=== PATIENT | female | born 1995 | race African-American/Black ===

== ENCOUNTER 2018-01-07 18:21 | Emergency (ER) | payer BC, OTHER ==
[2018-01-07] MEDS ORDERED: DIPHENHYDRAMINE HCL 25 MG CAPSULE PO ONE (18:50)
[2018-01-07] MEDS ORDERED: FAMOTIDINE 20 MG TABLET PO ONE (18:50)
--- NOTE | 2018-01-07 18:59 | ER Document Report ---
ED General - General Chief Complaint: Anxiety Stated Complaint: SHORTNESS OF BREATH Time Seen by Provider: 01/07/18 18:38 Mode of Arrival: Ambulatory Information source: Patient Notes: 22-year-old female presented ED for complaint of anxiety. She states that she had a similar symptoms last week but did not come to the emergency room. She states she has had anxiety as the younger age. She states last week she was eating some sulfur and trips and also became short of breath and felt like her throat was closing. She states that she stopped eating the sausage chips as she had several family. Over her and then she relaxed and made herself calm down and she was okay she stated that today at work she was eating some chili the same thing happened her throat feel like she was close enough and she became short of breath. I asked her did she have a psychologists and she stated no I asked her did she have a mental health care provider when she stated that God was her only mental health provider and that her family usually prays over her when she has these episodes. We discussed the use of some Benadryl and Pepcid for the symptoms that she is having now and she said yes she would like that at this time. She states she wanted to know what was going on with her. Her assessment is completely negative for anything at this time she is not short of breath her vital signs are stable. She has not having any signs or symptoms of shortness of breath or swelling to her throat at this time. She states she does feel a little bit anxious because of what happened earlier. TRAVEL OUTSIDE OF THE [place] IN LAST 30 DAYS: No - HPI Onset: Last week Onset/Duration: Intermittent Quality of pain: No pain Severity: None Pain Level: Denies Associated symptoms: Other - Possible allergy to food she ate or anxiety attack Exacerbated by: Other - He becomes more anxious after having the shortness of breath and feeling like her throat is swelling Relieved by: Denies Similar symptoms previously: Yes - Last week Recently seen / treated by doctor: No - Related Data Allergies/Adverse Reactions: No Known Allergies Allergy (Unverified 01/07/18 18:23) Past Medical History - General Information source: Patient - Social History Smoking Status: Never Smoker Cigarette use (# per day): No Chew tobacco use (# tins/day): No Smoking Education Provided: No Frequency of alcohol use: None Drug Abuse: None Occupation: Call center Lives with: Spouse/Significant other Family History: Reviewed & Not Pertinent Patient has suicidal ideation: No Patient has homicidal ideation: No - Past Medical History Cardiac Medical History: Reports: None Pulmonary Medical History: Reports: None EENT Medical History: Reports: None Neurological Medical History: Reports: None Endocrine Medical History: Reports: None Renal/ Medical History: Reports: None Malignancy Medical History: Reports: None Musculoskeltal Medical History: Reports None Skin Medical History: Reports None Psychiatric Medical History: Reports: Other - never diagnosed with anxiety but she did have some anxiety when younger Traumatic Medical History: Reports: None Infectious Medical History: Reports: None Surgical Hx: Negative Past Surgical History: Reports: None Review of Systems - Review of Systems Constitutional: No symptoms reported EENT: Other - States felt like her throat was swelling and she was having trouble swallowing earlier Cardiovascular: No symptoms reported Respiratory: No symptoms reported Gastrointestinal: No symptoms reported Genitourinary: No symptoms reported Female Genitourinary: No symptoms reported Musculoskeletal: No symptoms reported Skin: No symptoms reported Hematologic/Lymphatic: No symptoms reported Neurological/Psychological: Anxiety -: Yes All other systems reviewed and negative Physical Exam - Vital signs Vitals: Temp Pulse Resp BP Pulse Ox 98.0 F 87 18 129/82 H 100 01/07/18 18:33 01/07/18 18:33 01/07/18 18:33 01/07/18 18:33 01/07/18 18:33 Interpretation: Normal - General General appearance: Appears well, Alert - HEENT Head: Normocephalic, Atraumatic Eyes: Normal Pupils: PERRL Ears: Normal External canal: Normal Tympanic membrane: Normal Sinus: Normal Nasal: Normal Mouth/Lips: Normal Pharynx: Normal Neck: Normal - Respiratory Respiratory status: No respiratory distress Chest status: Nontender Breath sounds: Normal Chest palpation: Normal - Cardiovascular Rhythm: Regular Heart sounds: Normal auscultation Murmur: No - Abdominal Inspection: Normal Distension: No distension Bowel sounds: Normal Tenderness: Nontender Organomegaly: No organomegaly - Back Back: Normal, Nontender - Extremities General upper extremity: Normal inspection, Nontender, Normal color, Normal ROM , Normal temperature General lower extremity: Normal inspection, Nontender, Normal color, Normal ROM , Normal temperature, Normal weight bearing. No: Janak's sign - Neurological Neuro grossly intact: Yes Cognition: Normal Orientation: AAOx4 Robert Coma Scale Eye Opening: Spontaneous Robert Coma Scale Verbal: Oriented [place] Coma Scale Motor: Obeys Commands [place] Coma Scale Total: 15 Speech: Normal Motor strength normal: LUE, RUE, LLE, RLE Sensory: Normal - Psychological Associated symptoms: Normal affect, Normal mood - Skin Skin Temperature: Warm Skin Moisture: Dry Skin Color: Normal Course - Re-evaluation Re-evalutation: 01/07/18 19:03 Patient was given a list of the mental health facilities in the area that she could consult. She was also given a dose of Pepcid and Benadryl. Her assessment is negative at this time I do not see any swelling I do not see any enlargement of the tongue I do not see any signs or symptoms of swelling to the throat she is able to drink and eat with no difficulty at this time she is not short of breath her lungs are clear heart rate is within normal limits. I recommended patient follow-up with her primary doctor and get a referral to an psychologists and to a mental health worker. I recommended to the patient that if she has another episode like this that she comes right to the emergency room so someone can evaluate what is going on at the time of the episode. Patient and significant other verbalized agreement with this plan. - Vital Signs Vital signs: Temp Pulse Resp BP Pulse Ox 98.0 F 87 18 129/82 H 100 01/07/18 18:33 01/07/18 18:33 01/07/18 18:33 01/07/18 18:33 01/07/18 18:33 Discharge - Discharge Clinical Impression: possible allergic reaction, Anxiety Condition: Stable Disposition: HOME, SELF-CARE Instructions: Family Physicians / Practices Additional Instructions: Anxiety The physician feels that some of your health problems are being caused by anxiety. Anxiety affects your health in many ways. Anxiety alone can cause palpitations, sweats, chest pains, abdominal pains, shortness of breath, and headaches. It contributes to ulcer disease, high blood pressure, irritable bowel syndrome, and has been shown to cause flare-ups of many other diseases. Anxiety is not a simple disorder to treat. If the anxiety is due to recent life stresses, you may simply need time to "work through" the changes. If the anxiety is due to an underlying unhappiness with yourself or due to psychiatric disturbance, professional help will be needed. Your physician can refer you for further help if needed. Anti-anxiety medication is occasionally given if the stress is acute or if you are having trouble sleeping. Chronic or frequent use of these medications is not a good idea because the body becomes reliant on it, preventing you from dealing with life's normal stresses. ACUTE ALLERGIC REACTION: Your symptoms are due to an allergic reaction. Allergy can cause hives, swelling of the hands, feet, and face, hoarseness, and difficulty swallowing or breathing. It may be due to exposure to medication, animal dander, foods, infection, or insect bites. Medication is a common cause, even when prior use of this same medication caused no problems. Acute treatment may include adrenalin and antihistamines. Usually, the specific allergic agent can't be identified unless repeated episodes occur. Home treatment includes the following: (1) Stop any suspicious medications. This will be discussed with you. (2) Oral antihistamines for the next four to five days. Example, diphenhydramine (Benadryl) every four hours. (3) You may also use cimetidine (Tagamet), ranitidine (Zantac), or famotidine ( Pepcid) every four hours if diphenhydramine is not controlling itching and hives. (4) Avoid aspirin until the hives completely disappear. (5) Avoid hot baths or showers until the hives are completely gone. Call the doctor if faintness, difficulty swallowing, tightness in the chest , or wheezing occurs. ACID-SUPPRESSING MEDICATION: You have a prescription for medicine which reduces the stomach's secretion of acid. Examples include Zantac, Tagament, and Pepcid. These drugs are often used to allow healing of ulcers or esophagitis. They may be needed to prevent recurrence of ulcers in some patients, or to prevent damage from acid reflux in the esophagus. Take all medication as prescribed, even after the pain is gone. Regular antacids may be added as needed if you have symptoms while taking this medicine. These medications sometimes are prescribed for allergic reactions because they have anti-histaminic effects and relieve the rash and itching of the reaction. There are usually no side effects from this medication. But, in rare cases and particularly in the elderly, serious problems can occur. Contact your doctor if there is fever, rash, hallucinations, confusion, or unusual bruising. Contact your doctor at once if you develop lightheadedness, black or bloody stool, or bloody vomitus. USE OF DIPHENHYDRAMINE: The use of diphenhydramine (Benadryl) has been recommended to control allergic symptoms. The 25 mg strength is available over- the-counter, as well as the elixir. This antihistamine is used for many symptoms. It's useful for itching, watering eyes and nose, allergic swelling, hives, and insect stings. The medication can be repeated four times daily. Age Elixir (12.5 mg/tsp) 25 mg pill 2-3 yr 1/2 tsp 4-8 yr 1 tsp 9-14 yr 2 tsp one tab adult 1-2 tabs Antihistamines may cause drowsiness, especially with the first dose. Do not operate machinery or drive while under the effects of the medication. Do not combine the medication with alcohol, or with any other medication without talking to your doctor. FOLLOW-UP CARE: If you have been referred to a physician for follow-up care, call the physician s office for an appointment as you were instructed or within the next two days. If you experience worsening or a significant change in your symptoms, notify the physician immediately or return to the Emergency Department at any time for re-evaluation. Forms: Elevated Blood Pressure, Return to Work
[2018-01-07 19:10] VITALS: BP 129/69
== END 2018-01-07 19:13 | disposition home or self-care (01) ==
LOC: ER 18:21
DX: F41.9 Anxiety disorder, unspecified (principal); R06.02 Shortness of breath
CPT/HCPCS: 99283

== ENCOUNTER 2018-05-13 23:36 | Emergency (ER) | payer OTHER ==
[2018-05-13 23:58] VITALS: BP 119/78
[2018-05-14] MEDS ORDERED: NAPROXEN 250 MG TABLET PO ONE (01:30)
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
== END 2018-05-14 02:13 | disposition home or self-care (01) ==
LOC: ER 23:36
DX: M25.562 Pain in left knee (principal); V43.62XA Car passenger injured in collision with other type car in traffic accident, initial encounter; Y92.410 Unspecified street and highway as the place of occurrence of the external cause
CPT/HCPCS: 99283

== ENCOUNTER 2018-08-27 20:43 | Emergency (ER) | payer OTHER ==
--- NOTE | 2018-08-27 22:37 | ER Document Report ---
HPI - HPI Patient complains to provider of: Sore throat Pain Level: 2 Context: Patient is a 22-year-old female presenting to the emergency department complaining of a "lump on the left side of her neck." Patient states she is also had a sore throat for the last 3 days. Patient also states she has had a runny nose and cough. Patient denies fever, abdominal pain, nausea, vomiting, diarrhea, dysuria. Past medical history: None Medications: None Allergies: None - EENT EENT: REPORTS: Sore Throat - "lump" on neck Past Medical History - General Information source: Patient - Social History Smoking Status: Unknown if Ever Smoked Lives with: Family Family History: Reviewed & Not Pertinent Patient has suicidal ideation: No Patient has homicidal ideation: No Renal/ Medical History: Denies: Hx Peritoneal Dialysis - Immunizations Immunizations up to date: Yes Hx Diphtheria, Pertussis, Tetanus Vaccination: Yes Vertical Provider Document - CONSTITUTIONAL Agree With Documented VS: Yes Notes: GENERAL: Alert, interacts well. No acute distress. HEAD: Normocephalic, atraumatic. No frontal or maxillary sinus tenderness EYES: Pupils equal, round, and reactive to light. Extraocular movements intact. ENT: Oral mucosa moist, tongue midline. Pharynx mannerly erythematous, no palatal petechiae, no exudate noted tonsils +2 bilaterally. Bilateral TMs and canal WNL. NECK: Full range of motion. Supple. Trachea midline. Bilateral cervical lymphadenopathy appreciated LUNGS: Clear to auscultation bilaterally, no wheezes, rales, or rhonchi. No respiratory distress. HEART: Regular rate and rhythm. No murmur ABDOMEN: Soft, non-tender. Non-distended. Bowel sounds present in all 4 quadrants. EXTREMITIES: Moves all 4 extremities spontaneously. No edema, normal radial and dorsalis pedis pulses bilaterally. No cyanosis. BACK: no cervical, thoracic, lumbar midline tenderness. No saddle anesthesia, normal distal neurovascular exam. NEUROLOGICAL: Alert and oriented x3. Normal speech. cranial nerves II through XII grossly intact PSYCH: Normal affect, normal mood. SKIN: Warm, dry, normal turgor. No rashes or lesions noted. - INFECTION CONTROL TRAVEL OUTSIDE OF THE [place] IN LAST 30 DAYS: No Course - Re-evaluation Re-evalutation: 08/27/18 22:44 Rapid strep was negative. Discussed diagnosis of lymphadenopathy with the patient. Discussed need to follow-up with primary care. Patient states her cough is "very intermittent" she does not want any cough medications. Patient states she will take [id number] medications. Close return precautions discussed - Vital Signs Vital signs: Temp Pulse Resp BP Pulse Ox 98.5 F 72 18 128/78 H 100 08/27/18 20:56 08/27/18 20:56 08/27/18 20:56 08/27/18 20:56 08/27/18 20:56 Discharge - Discharge Clinical Impression: Lymphadenopathy Pharyngitis Qualifiers: Pharyngitis/tonsillitis etiology: unspecified etiology Qualified Code(s): J02.9 - Acute pharyngitis, unspecified Condition: Stable Disposition: HOME, SELF-CARE Instructions: Viral Syndrome ([facility]), Lymphadenopathy ([facility]) Additional Instructions: As we discussed you have been seen and treated in the emergency room for something called lymphadenopathy. This means your lymph nodes are swollen. Lymph nodes are what help us fight infections. Because you have a sore throat, congestion and cough this is the likely reason why your lymph nodes are swollen. Your rapid strep came back negative for bacteria. This means you have something called viral pharyngitis. Viral pharyngitis can be treated with Tylenol and Motrin at home. Also warm salt water gargles and honey. Please return to the emergency room for any other worsening symptoms
[2018-08-27] MEDS ORDERED: ACETAMINOPHEN 325 MG TABLET PO ONE (22:38)
[2018-08-27 22:55] VITALS: BP 118/73
== END 2018-08-27 22:55 | disposition home or self-care (01) ==
LOC: ER 20:43
DX: J02.9 Acute pharyngitis, unspecified (principal); R59.0 Localized enlarged lymph nodes; R09.89 Other specified symptoms and signs involving the circulatory and respiratory systems; R05 Cough
CPT/HCPCS: 87070; 87880; 99283

== ENCOUNTER 2019-04-07 18:05 | Emergency (ER) | payer OTHER ==
[2019-04-07 18:11] VITALS: BP 133/75
[2019-04-07] MEDS ORDERED: IBUPROFEN 800 MG TABLET PO ONE (18:55)
[2019-04-07] MEDS ORDERED: DIPHENHYDRAMINE HCL 50 MG CAPSULE PO ONE (18:55)
[2019-04-07] MEDS ORDERED: MECLIZINE HCL 12.5 MG TABLET PO ONE (18:55)
--- NOTE | 2019-04-07 18:55 | ER Document Report ---
ED Medical Screen (RME) - General Chief Complaint: Headache Stated Complaint: HEADACHE Time Seen by Provider: 04/07/19 18:23 Mode of Arrival: Ambulatory Information source: Patient Notes: Patient is a 23-year-old female without a history of headache or migraine who presents to the ER today for pressure in the back of her head that she states is not really painful just "like a pressure" that she noticed come on while she was sitting at work today. Patient has no history of Chiari malformation, etc., she denies any other headache symptoms such as nausea, vomiting, blurred vision, numbness or tingling anywhere, weakness anywhere, injury to the head. TRAVEL OUTSIDE OF THE [place] IN LAST 30 DAYS: No - Related Data Allergies/Adverse Reactions: No Known Allergies Allergy (Unverified 01/07/18 18:23) Past Medical History - General Information source: Patient - Social History Chew tobacco use (# tins/day): No Frequency of alcohol use: None Drug Abuse: None Renal/ Medical History: Denies: Hx Peritoneal Dialysis - Immunizations Immunizations up to date: Yes Hx Diphtheria, Pertussis, Tetanus Vaccination: Yes Review of Systems - Review of Systems Constitutional: No symptoms reported EENT: No symptoms reported Cardiovascular: No symptoms reported Respiratory: No symptoms reported Gastrointestinal: No symptoms reported Genitourinary: No symptoms reported Female Genitourinary: No symptoms reported Musculoskeletal: No symptoms reported Skin: No symptoms reported Hematologic/Lymphatic: No symptoms reported Neurological/Psychological: See HPI Physical Exam - Vital signs Vitals: Temp Pulse Resp BP Pulse Ox 98.1 F 77 12 133/75 H 100 04/07/19 18:10 04/07/19 18:10 04/07/19 18:10 04/07/19 18:10 04/07/19 18:10 - Notes Notes: PHYSICAL EXAMINATION: GENERAL: Well-appearing and in no acute distress. HEAD: Atraumatic, normocephalic. EYES: Pupils equal round and reactive to light, extraocular movements intact, sclera anicteric, conjunctiva are normal. ENT: ear canals without erythema or foreign body, TMs pearly holley with good bony landmarks, nares patent, oropharynx clear without exudates. Moist mucous membranes. NECK: Normal range of motion, supple without lymphadenopathy LUNGS: CTAB and equal. No wheezes rales or rhonchi. HEART: Regular rate and rhythm without murmurs ABDOMEN: Soft, no tenderness. No guarding, no rebound BACK: no vertebral tenderness, normal ROM GI/: no CVA tenderness EXTREMITIES: Normal range of motion, no pitting edema. No cyanosis. NEUROLOGICAL: Cranial nerves grossly intact. Normal sensory/motor exams. PSYCH: Normal mood, normal affect. SKIN: Warm, Dry, normal turgor, no rashes or lesions noted Course - Vital Signs Vital signs: Temp Pulse Resp BP Pulse Ox 98.1 F 77 12 133/75 H 100 04/07/19 18:10 04/07/19 18:10 04/07/19 18:10 04/07/19 18:10 04/07/19 18:10 Doctor's Discharge - Discharge Clinical Impression: Headache Qualifiers: Headache type: unspecified Headache chronicity pattern: acute headache Intractability: not intractable Qualified Code(s): R51 - Headache Condition: Stable Disposition: HOME, SELF-CARE Additional Instructions: Return immediately for any new or worsening symptoms. Follow up with primary care provider, call tomorrow to make followup appointment. Prescriptions: Ibuprofen [Motrin 800 mg Tablet] 800 mg PO Q8H PRN #30 tab PRN Reason: Prochlorperazine Maleate [Compazine 10 mg Tablet] 10 mg PO Q8H PRN #10 tablet PRN Reason:
--- NOTE | 2019-04-07 19:25 | RADIOLOGY REPORT (SQ) ---
EXAM DESCRIPTION: CT HEAD WITHOUT COMPLETED DATE/TIME: 04/07/2019 7:01 pm REASON FOR STUDY: pressure back of head COMPARISON: None. TECHNIQUE: Axial images acquired through the brain without intravenous contrast. Images reviewed wi th bone, brain and subdural windows. Images stored on PACS. All CT scanners at this facility use dose modulation, iterative reconstruction, and/or weight based d osing when appropriate to reduce radiation dose to as low as reasonably achievable (ALARA). [facility]: Dose Right [facility]: CareDose [facility]: Dose Right [facility]: Teradose 4D [facility]: Smart Disqus RADIATION DOSE: CT Rad equipment meets quality standard of care and radiation dose reduction techniq ues were employed. CTDIvol: 53.2 mGy. DLP: 1044 mGy-cm. mGy. LIMITATIONS: None. FINDINGS: VENTRICLES: Normal size and contour. CEREBRUM: No masses. No hemorrhage. No midline shift. No evidence for acute infarction. Normal gra y/white matter differentiation. No areas of low density in the white matter. CEREBELLUM: No masses. No hemorrhage. No alteration of density. No evidence for acute infarction. EXTRAAXIAL SPACES: No fluid collections. No masses. ORBITS AND GLOBE: No intra- or extraconal masses. Normal contour of globe without masses. CALVARIUM: No fracture. PARANASAL SINUSES: No fluid or mucosal thickening. SOFT TISSUES: No mass or hematoma. OTHER: No other significant finding. IMPRESSION: NORMAL BRAIN CT WITHOUT CONTRAST. EVIDENCE OF ACUTE STROKE: NO. COMMENT: Quality ID # [id number]: Final reports with documentation of one or more dose reduction techniques (e.g., Automated exposure control, adjustment of the mA and/or kV according to patient size, use of iterative reconstruction technique) TECHNICAL DOCUMENTATION: JOB ID: [id number] [employer]- All Rights Reserved Reading location - IP/workstation name: [email or web address]
== END 2019-04-07 19:35 | disposition home or self-care (01) ==
LOC: ER 18:05
DX: R51 Headache (principal)
CPT/HCPCS: 70450; 99284

== ENCOUNTER 2019-08-28 10:42 | Emergency (ER) | payer OTHER ==
--- NOTE | 2019-08-28 11:52 | ER Document Report ---
ED Medical Screen (RME) - General Chief Complaint: Dizziness Stated Complaint: DIZZINESS Time Seen by Provider: 08/28/19 11:48 Primary Care Provider: FLORENTINO DAVID CNM [Primary Care Provider] - Follow up as needed Mode of Arrival: Ambulatory Information source: Patient Notes: 23-year-old female presented to ED for complaint of dizziness. She states she had dizziness for about 4 hours Jairo went away and then started again today about 1030. She states she was at work so she left and came to the emergency room. She is 20 weeks and this is her first . States she has an appointment with the doctor on for her . She states she has never been told she had a problem with her sugars. She denies history of dizzy spells or any medical history. She denies smoking drinking or use of drugs. I have greeted and performed a rapid initial assessment of this patient. A comprehensive ED assessment and evaluation of the patient, analysis of test results and completion of medical decision making process will be conducted by an additional ED providers. TRAVEL OUTSIDE OF THE [place] IN LAST 30 DAYS: No - Related Data Allergies/Adverse Reactions: No Known Allergies Allergy (Verified 08/28/19 11:47) Past Medical History Renal/ Medical History: Denies: Hx Peritoneal Dialysis - Immunizations Immunizations up to date: Yes Hx Diphtheria, Pertussis, Tetanus Vaccination: Yes Physical Exam - Vital signs Vitals: Temp Pulse Resp BP Pulse Ox 98.2 F 90 16 127/73 H 100 08/28/19 11:01 08/28/19 11:01 08/28/19 11:01 08/28/19 11:01 08/28/19 11:01 Course - Vital Signs Vital signs: Temp Pulse Resp BP Pulse Ox 98.2 F 90 16 127/73 H 100 08/28/19 11:01 08/28/19 11:01 08/28/19 11:01 08/28/19 11:01 08/28/19 11:01 Doctor's Discharge - Discharge Referrals: FLORENTINO DAVID CNM [Primary Care Provider] - Follow up as needed
[2019-08-28 12:19] LABS: ABSOLUTE EOSINOPHILS # (AUTO) 0.1 10^3/uL (0.0-0.6); ABSOLUTE LYMPHOCYTES (AUTO) 2.4 10^3/uL (0.5-4.7); ABSOLUTE MONOCYTES (AUTO) 0.7 10^3/uL (0.1-1.4); ABSOLUTE NEUT (AUTO) 5.8 10^3/uL (1.7-8.2); BASOPHILS % (AUTO) 0.4 % (0-2); EOSINOPHILS % (AUTO) 0.8 % (0-6); HEMATOCRIT 37.5 % (36.0-47.0); HEMOGLOBIN 12.7 g/dL (12.0-15.5); LYMPHOCYTES % (AUTO) 26.6 % (13-45); MEAN CORPUSCULAR HEMOGLOBIN 29.8 pg (27.0-33.4); MEAN CORPUSCULAR HGB CONC 33.9 g/dL (32.0-36.0); MEAN CORPUSCULAR VOLUME 88 fl (80-97); MONOCYTES % (AUTO) 7.6 % (3-13); PLATELET COUNT 300 10^3/uL (150-450); RED BLOOD COUNT 4.27 10^6/uL (3.72-5.28); RED CELL DISTRIBUTION WIDTH 13.4 % (11.5-14.0); SEGMENTED NEUTROPHILS % (AUTO) 64.6 % (42-78); TOTAL CELLS COUNTED % (AUTO) 100 %
[2019-08-28 12:22] LABS: APPEARANCE,URINE CLEAR; BILIRUBIN,URINE NEGATIVE (NEGATIVE); COLOR,URINE STRAW; GLUCOSE, URINE NEGATIVE (NEGATIVE); KETONES,URINE NEGATIVE (NEGATIVE); PROTEIN,URINE NEGATIVE (NEGATIVE); URINE SPECIFIC GRAVITY 1.003; UROBILINOGEN,URINE NEGATIVE mg/dL (<2.0)
[2019-08-28 12:38] LABS: ALBUMIN 3.9 g/dL (3.5-5.0); ALKALINE PHOSPHATASE 50 U/L (38-126); ANION GAP 8 (5-19); ASPARTATE AMINO TRANSFERASE 15 U/L (14-36); BILIRUBIN,DIRECT 0.1 mg/dL (0.0-0.4); BILIRUBIN,TOTAL 0.1 mg/dL (0.2-1.3); BLOOD UREA NITROGEN 3 mg/dL (7-20); CALCIUM 9.4 mg/dL (8.4-10.2); CARBON DIOXIDE 25 mmol/L (22-30); CHLORIDE 106 mmol/L (98-107); POTASSIUM 4.2 mmol/L (3.6-5.0)
[2019-08-28 12:58] LABS: GLUCOSE 62 mg/dL (75-110)
--- NOTE | 2019-08-28 13:21 | ER Document Report ---
ED General - General Chief Complaint: Dizziness Stated Complaint: DIZZINESS Time Seen by Provider: 08/28/19 11:48 Primary Care Provider: FLORENTINO DAVID CNM [NO LOCAL MD] - Follow up as needed Mode of Arrival: Ambulatory Notes: HPI: 23-year-old female that presents today stating around 3 to 4 days of some intermittent dizziness. When I asked her what that means, she states she has a sensation of "spinning feeling". She states it is intermittent. No aggravating relieving factors. No headache, blurry vision, nausea, vomiting, fevers, or vaginal bleeding. She is 20 weeks . No pelvic pain or dysuria. She currently denies any symptomatology. No recent upper respiratory tract i nfections or ear fullness or pain. No previous history of similar symptomatology. ROS: See HPI All other review of systems reviewed and otherwise negative Reviewed vital signs and nursing note as charted by RN. PHYSICAL EXAM: CONSTITUTIONAL: Alert and oriented and responds appropriately to questions. Well-appearing; well-nourished HEAD: Normocephalic; atraumatic EYES: PERRL; Conjunctivae clear, sclerae non-icteric ENT: Normal nose; no rhinorrhea; moist mucous membranes; pharynx without lesions noted NECK: Supple without meningismus; non-tender; no cervical lymphadenopathy, no masses CARD: Regular rate and rhythm; no murmurs; symmetric distal pulses RESP: Normal chest excursion without splinting or tachypnea; breath sounds clear and equal bilaterally ABD/GI: Normal bowel sounds; non-distended; soft, non-tender BACK: The back appears normal and is non-tender to palpation EXT: Normal ROM in all joints; non-tender to palpation; no edema SKIN: No acute lesions noted NEURO: CN 2-12 intact; 5/5 bilateral upper and lower extremity strength with sensation intact to light touch; normal [id number] bilaterally; no nystagmus PSYCH: The patient's mood and manner are appropriate. Grooming and personal hygiene are appropriate. TRAVEL OUTSIDE OF THE [place] IN LAST 30 DAYS: No - Related Data Allergies/Adverse Reactions: No Known Allergies Allergy (Verified 08/28/19 11:47) Home Medications: . Vit D Past Medical History - General Information source: Patient - Social History Smoking Status: Never Smoker Chew tobacco use (# tins/day): No Frequency of alcohol use: None Drug Abuse: None Family History: Reviewed & Not Pertinent Patient has suicidal ideation: No Patient has homicidal ideation: No Renal/ Medical History: Denies: Hx Peritoneal Dialysis - Immunizations Immunizations up to date: Yes Hx Diphtheria, Pertussis, Tetanus Vaccination: Yes Physical Exam - Vital signs Vitals: Temp Pulse Resp BP Pulse Ox 98.2 F 90 16 127/73 H 100 08/28/19 11:01 08/28/19 11:01 08/28/19 11:08/28/19 11:08/28/19 11:01 Course - Re-evaluation Re-evalutation: 08/28/19 13:20 Given the history and physical examination, I do have a very low pretest probability for an acute intracranial lesion. Patient has been afebrile denies any upper respiratory tract infection symptoms. No focal neurological deficits or nystagmus at this time. Patient is sitting up smiling in no acute distress. I do not believe any maneuvers or manipulations need to take place at this time. I would like to check the patient's hemoglobin level and test to evaluate for any obvious anemia or . If this is unremarkable, I will discharge the patient home a short course of meclizine with strict return precautions. 08/28/19 13:51 Labs as recorded. Vital signs are stable. Patient is 20 weeks . Meclizine is safe during so I will provide a short course. Strict return precautions have been explained. - Vital Signs Vital signs: Temp Pulse Resp BP Pulse Ox 98.2 F 90 16 127/73 H 100 08/28/19 11:01 08/28/19 11:01 08/28/19 11:01 08/28/19 11:01 08/28/19 11:01 - Laboratory Result Diagrams: 08/28/19 12:00 08/28/19 12:00 Laboratory results interpreted by me: 08/28/19 12:00 BUN 3 L Creatinine 0.44 L Glucose 62 L Total Bilirubin 0.1 L Beta HCG, Quant 81067.00 H Discharge - Discharge Clinical Impression: Vertigo, and not yet delivered in second trimester Condition: Good Disposition: HOME, SELF-CARE Additional Instructions: Come back immediately with any return or increased dizziness, any headache, blurry vision, chest pain or shortness of breath, abdominal pain, fevers, pain with urination, vaginal bleeding, or any other acute problems. Please follow-up with your [facility] as we have discussed. Prescriptions: Meclizine HCl 25 mg PO Q8H PRN #12 tab.chew PRN Reason: Referrals: FLORENTINO DAVID CNM [NO LOCAL MD] - Follow up as needed
[2019-08-28 14:07] VITALS: BP 131/68
== END 2019-08-28 14:07 | disposition home or self-care (01) ==
LOC: ER 10:42
DX: O26.892 Other specified pregnancy related conditions, second trimester (principal); R42 Dizziness and giddiness; Z3A.20 20 weeks gestation of pregnancy; Z79.899 Other long term (current) drug therapy
CPT/HCPCS: 36415; 80053; 81001; 84702; 85025; 99284

== ENCOUNTER 2020-01-01 14:19 | Outpatient (CLI) | payer OTHER ==
--- NOTE | 2020-01-01 15:38 | Non Stress Test Report ---
Non Stress Test Datetime Report Generated by CPN: 01/01/2020 15:38 DEMOGRAPHIC Test Number: 1 EGA NST: 37.6 VITAL SIGNS Temperature - NST: 98.2 Pulse - NST: 93 RESP - NST: 18 NBPSYS NST: 118 NBPDIA NST: 58 MONITORING Monitor Explained: Monitor Explained; Test Explained; Patient Verbalized Understanding Time on Monitor: 01/01/2020 14:40 Time off Monitor: 01/01/2020 15:34 NST Duration: 54 NST INTERVENTIONS NST Interventions: PO Hydration Physician Notified NST: nDav Carlos on unit reviewed strip BABY A: [id number] BABY A Movement : Present Contraction Frequency : irregular FHR Baseline : 145 Accelerations : 15X15 Decelerations : None Variability : Moderate 6-25bpm NST Review: Meets Criteria for Reactive NST NST Review and Verified By : MMobley NST Results: Reactive NST REPORT Report Trigger: Send Report
== END 2020-01-01 15:40 | disposition home or self-care (01) ==
LOC: LC 14:19
PROVIDERS: ATTEND Obstetrics & Gynecology
PROC: 4A1HXCZ Monitoring of Products of Conception, Cardiac Rate, External Approach (ICD-10-PCS; principal; 2020-01-01)
DX: Z34.03 Encounter for supervision of normal first pregnancy, third trimester (principal)
CPT/HCPCS: 59025

== ENCOUNTER 2020-01-21 18:46 | Inpatient (IN) | payer BC, OTHER ==
[2020-01-21] MEDS ORDERED: RINGERS SOLUTION,LACTATED 1,000 ML IV ONE (19:06)
[2020-01-21] MEDS ORDERED: DINOPROSTONE 10 MG VAGINAL INSERT.SR ONE (19:14)
[2020-01-21] MEDS: RINGERS SOLUTION,LACTATED 1,000 ML IV PRN (19:15)
[2020-01-21 19:52] LABS: ABSOLUTE BASOPHILS # (AUTO) 0.1 10^3/uL (0.0-0.2); ABSOLUTE MONOCYTES (AUTO) 0.9 10^3/uL (0.1-1.4); ABSOLUTE NEUT (AUTO) 6.9 10^3/uL (1.7-8.2); BASOPHILS % (AUTO) 0.6 % (0-2); EOSINOPHILS % (AUTO) 0.5 % (0-6); HEMATOCRIT 37.7 % (36.0-47.0); HEMOGLOBIN 13.1 g/dL (12.0-15.5); LYMPHOCYTES % (AUTO) 20.6 % (13-45); MEAN CORPUSCULAR HEMOGLOBIN 30.2 pg (27.0-33.4); MEAN CORPUSCULAR HGB CONC 34.6 g/dL (32.0-36.0); MEAN CORPUSCULAR VOLUME 87 fl (80-97); MONOCYTES % (AUTO) 8.7 % (3-13); PLATELET COUNT 235 10^3/uL (150-450); RED BLOOD COUNT 4.33 10^6/uL (3.72-5.28); RED CELL DISTRIBUTION WIDTH 14.2 % (11.5-14.0); SEGMENTED NEUTROPHILS % (AUTO) 69.6 % (42-78); TOTAL CELLS COUNTED % (AUTO) 100 %; WHITE BLOOD COUNT 9.9 10^3/uL (4.0-10.5)
[2020-01-21 19:52] LABS: APPEARANCE,URINE CLEAR; BILIRUBIN,URINE NEGATIVE (NEGATIVE); COLOR,URINE STRAW; GLUCOSE, URINE NEGATIVE (NEGATIVE); KETONES,URINE NEGATIVE (NEGATIVE); LEUKOCYTE ESTERASE,URINE NEGATIVE (NEGATIVE); NITRITE,URINE NEGATIVE (NEGATIVE); PROTEIN,URINE NEGATIVE (NEGATIVE); URINE SPECIFIC GRAVITY 1.008; UROBILINOGEN,URINE NEGATIVE mg/dL (<2.0)
[2020-01-21 20:05] LABS: URINE AMPHETAMINES SCREEN NEGATIVE; URINE BARBITURATES SCREEN NEGATIVE; URINE BENZODIAZEPINES SCREEN NEGATIVE; URINE COCAINE SCREEN NEGATIVE; URINE MARIJUANA (THC) SCREEN NEGATIVE; URINE METHADONE SCREEN NEGATIVE; URINE PHENCYCLIDINE SCREEN NEGATIVE
--- NOTE | 2020-01-21 20:41 | Admission Physical ---
Datetime Report Generated by CPN: 01/21/2020 20:41 CURRENT ADMISSION Chief Complaint: Scheduled Induction of Labor Indication for Induction: Post Dates Admit Impression : Term, Intrauterine ALLERGIES Medication Allergies: No Medication Allergies: No Known Allergies (08/28/2019) Latex: No Latex Allergies OBSTETRICAL HISTORY EDC: 01/14/2020 00:00 : 1 Para: 0 Term: 0 : 0 SAB: 0 IAB: 0 Ectopic: 0 Livin Cesareans: 0 VBACs: 0 Multiple Births: 0 Gestational Diabetes: No Rh Sensitization: No Incompetent Cervix: No JASSON: No Infertility: No ART Treatment: No Uterine Anomaly: No IUGR: No Hx Previous C/S: No Macrosomia: No Hx Loss/Stillborn: No PIH: No Hx : No Placenta Previa/Abruption: No Depression/PP Depression: No PTL/PROM: No Post Hemorrhage: No Current Procedures: Ultrasound; NST Obstetrical History Comments: g1-current , IOL for postdates SEE RECORDS Alcohol: No Marijuana : No Cocaine: No Other Illicit Drugs: No Cigarettes: Never Smoker. [id number] MEDICAL HISTORY Diabetes: No Blood Transfusion: No Pulmonary Disease (Asthma, TB): No Breast Disease: No Hypertension: No Car Jockey Surgery: No Heart Disease: No Hosp/Surgery: No Autoimmune Disorder: No Anesthetic Complications: No Kidney Disease: No Abnormal Pap Smear: No Neuro/Epilepsy: No Psychiatric Disorders: No Other Medical Diseases: No Hepatitis/Liver Disease: No Significant Family History: No Varicosities/Phlebitis: No Trauma/Violence : No Thyroid Dysfunction: No INFECTIOUS HISTORY Gonorrhea: No Genital Herpes: No Chlamydia: No Tuberculosis: No Syphilis: No Hepatitis: No HIV/AIDS Exposure: No Rash or Viral Illness: No HPV: No PHYSICAL EXAM Vital Signs: Reviewed VAGINAL EXAM Dilatation: 1 Effacement: 0 Station: -2 Contraction Comments: none FETUS A EGA: 41.0 Monitoring: External US FHR- Baseline: 145 Variability: Moderate 6-25bpm Accelerations: 15X15 Decelerations: None Presentation: Vertex Admit Comment: 24yo at 41+0ega presents for IOL due to post yoselin. Cervidil IOL/cervical ripening. failed 1 hr GTT. [facility] transfer at 23wks. o/w uncomplicated. Admit to labor and delivery cervidil. anticipate PLANS FOR LABOR AND DELIVERY Labor and Delivery: None Pain Management: Epidural Feeding Preference: Breast Benefit of Breast Feed Discussed: Yes Circumcision: N/A INFORMED CONSENT Informed Consent Obtained: Vaginal Delivery; Induction of Labor; Risks, Benefits and Alternatives Discussed Signature: with User ID: [email or web address]
[2020-01-21] MEDS ORDERED: ACETAMINOPHEN 325 MG TABLET PO PRN (20:42)
[2020-01-21] MEDS ORDERED: MAG HYDROX/AL HYDROX/SIMETH SUSP 30 ML UDCUP PO PRN (20:42)
[2020-01-21] MEDS ORDERED: DINOPROSTONE 10 MG VAGINAL INSERT.SR PV ONE (20:42)
[2020-01-21] MEDS ORDERED: ZOLPIDEM TARTRATE 5 MG TABLET PO PRN (20:42)
[2020-01-22] MEDS: RINGERS SOLUTION,LACTATED 1,000 ML IV PRN (04:17)
[2020-01-22] MEDS ORDERED: MISOPROSTOL 0.2 MG TABLET ONE (09:45)
[2020-01-22] MEDS ORDERED: LIDOCAINE 1% INJ-PF (10 MG/ML) 30 ML SDV ONE (09:45)
[2020-01-22] MEDS ORDERED: OXYTOCIN 10 UNIT/ML VIAL ONE (09:45)
[2020-01-22] MEDS ORDERED: OXYTOCIN/NORMAL SALINE 20 UNIT/1,000 ML RTUINJ ONE (09:46)
[2020-01-22] MEDS: OXYTOCIN/NORMAL SALINE 20 UNIT/1,000 ML RTUINJ IV PRN (09:50)
[2020-01-22] MEDS ORDERED: MAG HYDROX/AL HYDROX/SIMETH SUSP 30 ML UDCUP PO PRN (17:16)
[2020-01-22] MEDS ORDERED: ACETAMINOPHEN 325 MG TABLET PO PRN (17:16)
[2020-01-22] MEDS ORDERED: ZOLPIDEM TARTRATE 5 MG TABLET PO PRN (17:16)
[2020-01-22] MEDS ORDERED: DINOPROSTONE 10 MG VAGINAL INSERT.SR PV ONE (17:16)
[2020-01-22] MEDS ORDERED: OXYTOCIN/NORMAL SALINE 20 UNIT/1,000 ML RTUINJ IV PRN (17:16)
[2020-01-22] MEDS ORDERED: DINOPROSTONE 10 MG VAGINAL INSERT.SR ONE (18:43)
[2020-01-23] MEDS ORDERED: OXYTOCIN/NORMAL SALINE 20 UNIT/1,000 ML RTUINJ ONE (08:18)
[2020-01-23] MEDS: OXYTOCIN/NORMAL SALINE 20 UNIT/1,000 ML RTUINJ IV PRN (08:27)
[2020-01-23] MEDS ORDERED: EPHEDRINE SULFATE INJ 50 MG/1 ML AMPULE ONE (10:10)
[2020-01-23] MEDS ORDERED: PHENYLEPHRINE HCL INJ/PF 10 MG/1 ML SDV ONE (10:10)
[2020-01-23] MEDS ORDERED: FENTANYL CITRATE INJ/PF 100 MCG/2 ML AMPUL ONE (10:10)
[2020-01-23] MEDS ORDERED: FENTANYL/BUPIVACAINE/NS/PF 0 MCG/0 ML RTUINJ EPI ONE (10:11)
[2020-01-23] MEDS ORDERED: BUPIVACAINE HCL 0.25 % INJ/PF (2.5 MG/1 ML) 30 ML VIAL ONE (10:11)
[2020-01-23] MEDS ORDERED: LIDOCAINE 2% JELLY 5 ML TUBE ONE (10:50)
[2020-01-23] MEDS ORDERED: BENZOCAINE/MENTHOL AEROSOL SPRAY 56 ML TOP PRN (11:26)
[2020-01-23] MEDS ORDERED: OXYTOCIN/NORMAL SALINE 20 UNIT/1,000 ML RTUINJ IV PRN (11:26)
[2020-01-23] MEDS ORDERED: AMPICILLIN SOD/SULBACTAM 3 GM VIAL IV ONE (11:26)
[2020-01-23] MEDS ORDERED: MEASLES,MUMPS&RUBELLA VACC/PF 0.5 ML VIAL SUBCUT PRN (11:26)
[2020-01-23] MEDS ORDERED: DIPH/PERTUSS(ACELL)/TETANUS VAC/PF 0.5 ML SYR (>=10YO) IM PRN (11:26)
[2020-01-23] MEDS ORDERED: ACETAMINOPHEN WITH CODEINE #3 TABLET PO PRN (11:26)
[2020-01-23] MEDS ORDERED: DIBUCAINE 1% OINTMENT 28 GM TP PRN (11:26)
[2020-01-23] MEDS ORDERED: AMPICILLIN SOD/SULBACTAM 3 GM VIAL ONE (11:47)
--- NOTE | 2020-01-23 12:51 | Warning Signs in Babies ---
VOD Warning Signs Datetime Report Generated by [facility]: 01/23/2020 12:50 VOD#608 -Warning Signs in Babies: Needs to be viewed. (01/01/2020 14:43:Brooklynn Wesley RN)
--- NOTE | 2020-01-23 12:52 | Delivery Summary ---
Del Sum A-C Datetime Report Generated by CPN: 01/23/2020 12:52 DELIVERY PERSONNEL DELIVERY PERSONNEL: [id number] Delivery Doctor:: Cortes Hannah MD Nurse Heel Seat Laster Certified:: Liila Carlos CNM Labor and Delivery Nurse:: Brooklynn Wesley RNassociate principal Nurse:: Tata Kirk RN Nursery Nurse:: Lcuita Gavin RN Nursery Nurse:: Lori Galeas RN Time Analysis Clerk/ETL ANALYST: Cheyanne Sousa CNA II Additional Personnel: : Glenna Felix RNC MATERNAL INFORMATION Delivery Anesthesia: Local Medications After Delivery: Pitocin Bolus-Please Comment; Cytotec 1000mcg Per Rectum/Vagina Meds After Delivery Comment: Pitocin 20 units in 1000 ml nss open for bolus Delivery QBL: 50 Maternal Complications: None Provider Comments: of VFI, crying, mouth bulb suctioned, placed on pts abdoman, in stable condition. Delivered EMELY w/ compound presentation of the left hand and cord wrapped around infants leg at delivery. Nursery RN's present for the delivery, Moderate meconium noted. Cord clamped and cut after one minute. cord blood collected. Upon gentle downward traction, umbilical cord evulsed. Placenta manually removed without difficulty, nor needing to go deep into the uterine cavity. Pt tolerated well. Plan to give Unasyn 3 gm x one dose. Repair of left labial laceration done, pt tolerated well. mother and baby left in stable condtion, pt plans to breastfeed. QBL 50 ml. Placenta to path w/ meconium staining noted and cord was inserted more in a distal location on the placenta rather then central. Attending MD is Dr Hannah LABOR SUMMARY EDC: 01/14/2020 00:00 No. Babies in Womb: 1 Attempted: No Labor Anesthesia: None LABOR INFORMATION Reason for Induction: Post Dates Onset of Labor: 01/23/2020 06:34 Complete Dilatation: 01/23/2020 10:42 Cervical Ripening Agents: Cervidil Oxytocin: Induction Group B Beta Strep: neg Antibiotics # of Doses: 0 Steroids Given: None Reason Steroids Not Administered: Not Applicable MEMBRANES Membranes Rupture Method: Artificial Rupture of Membranes: 01/23/2020 10:02 Length of Rupture (hr): 0.98 Amniotic Fluid Color: Moderate Meconium Amniotic Fluid Amount: Small Amniotic Fluid Odor: Normal STAGES OF LABOR Stage 1 hr: 4 Stage 1 min: 8 Stage 2 hr: 0 Stage 2 min: 19 Stage 3 hr: 0 Stage 3 min: 7 Total Time in Labor hr: 4 Total Time in Labor min: 34 VAGINAL DELIVERY Episiotomy: None Laceration #1: None Laceration Extension #1: N/A Other Laceration: left labial laceration repaired Laceration Repair: Yes Laceration Repair Note: Left labial laceration repaired w/ 3.0 vicryl using 1% lidocaine Sponge Count Correct: N/A Sharps Count Correct: N/A CSECTION DELIVERY Primary Indication: N/A Secondary Indication: N/A CSection Incidence: N/A Labor: N/A Elective: N/A CSection Incision: N/A BABY A INFORMATION Infant Delivery Date/Time: 01/23/2020 11:01 Method of Delivery: Vaginal Nurse Controlled Delivery: No Born in Route : No : N/A (Annotations: Data stored by [facility] on behalf of user) Forceps: N/A Vacuum Extraction: N/A Shoulder Dystocia : No PRESENTATION/POSITION BABY A Presentation: Cephalic Cephalic Presentation: Vertex Vertex Position: Right Occipital Anterior Breech Presentation: N/A PLACENTA INFORMATION BABY A Placenta Delivery Time : 01/23/2020 11:08 Placenta Method of Delivery: Manual Removal Placenta Status: Delivered SCORES BABY A Heart Rate 1 min: >100 bpm Resp Effort 1 min: Slow, Irregular Reflex Irritability 1 min: Cough or Sneeze or Pulls Away Muscle Tone 1 min: Active Motion Color 1 min: Body Warm [place], Extremities Blue Resuscitation Effort 1 min: Tactile Stimulation; Oxygen; PPV/NCPAP; Endotracheal Intubation; Chest Compression SCORE 1 MIN: 8 Heart Rate 5 min: >100 bpm Resp Effort 5 min: Good Cry Reflex Irritability 5 min: Cough or Sneeze or Pulls Away Muscle Tone 5 min: Active Motion Color 5 min: Body Warm [place], Extremities Blue Resuscitation Effort 5 min: N/A SCORE 5 MIN: 9 Resuscitation Effort 10 min: N/A INFORMATION BABY A Gestational Age at Delivery: 41.2 Gestational Status: Late Term- 41- 41.6 Weeks Outcome : Liveborn Infant Condition : Stable Infant Sex: Female IDENTIFICATION BABY A Infant Verification Date/Time: 01/23/2020 11:09 ID Band Number: [id number] Mother's Name Verified: Yes RN Verifying : Quirino KirkLILIANE/ Elinor Wesley RN WEIGHT/LENGTH BABY A Infant Birthweight (gm): 3135 Infant Weight (lb): 6 Infant Weight (oz): 15 Infant Length (in): 19.50 Length (cm): 49.53 CORD INFORMATION BABY A No. Cord Vessels: 3 Nuchal Cord : N/A Nuchal Cord- Other: cord around left foot Cord Blood Taken: Yes-For Storage (Mom's Blood type +) Infant Suction: Mouth ASSESSMENT BABY A Complications: Multiple Late Decels; Multiple Variable Decels; Meconium; Other Infant Complications- Other: compound left hand Physical Findings at Delivery: Within Normal Limits Respirations: Appears Normal Skin to Skin: Yes Skin to Skin Time (min): 45 Bevel Polisher/ALS Called : No Infant Care By: Trina Gavin RN/ Yvette Galeas RN Transferred To: Remains with Mother BABY B INFORMATION : N/A SIGNATURES Assignment: Cortes Hannah MD Signature: with User ID: [email or web address] : with User ID: [email or web address]
[2020-01-23] MEDS ORDERED: IBUPROFEN 800 MG TABLET ONE (13:46)
[2020-01-23] MEDS: IBUPROFEN 800 MG TABLET PO SCH ×2 (14:05→21:00)
[2020-01-23] MEDS: FERROUS SULFATE 325 MG TABLET PO SCH (18:37)
[2020-01-23] MEDS: DOCUSATE SODIUM 100 MG CAPSULE PO SCH (18:37)
[2020-01-24] MEDS: IBUPROFEN 800 MG TABLET PO SCH ×4 (05:56→21:08)
[2020-01-24 07:04] LABS: HEMOGLOBIN 12.2 g/dL (12.0-15.5); MEAN CORPUSCULAR HEMOGLOBIN 29.7 pg (27.0-33.4); MEAN CORPUSCULAR HGB CONC 33.8 g/dL (32.0-36.0); MEAN CORPUSCULAR VOLUME 88 fl (80-97); PLATELET COUNT 197 10^3/uL (150-450); RED CELL DISTRIBUTION WIDTH 14.2 % (11.5-14.0); WHITE BLOOD COUNT 11.8 10^3/uL (4.0-10.5)
[2020-01-24] MEDS: SENNOSIDES/DOCUSATE 8.6-50 MG 1 EACH TABLET PO SCH (09:57)
[2020-01-24] MEDS: DOCUSATE SODIUM 100 MG CAPSULE PO SCH ×2 (09:57→17:32)
[2020-01-24] MEDS: PRENATAL VITAMIN W DHA CAPSULE PO SCH (09:57)
[2020-01-24] MEDS: FERROUS SULFATE 325 MG TABLET PO SCH ×2 (09:57→17:32)
--- NOTE | 2020-01-24 11:44 | PDOC PROGRESS REPORT ---
Subjective-OB Progress Note for:: 01/24/20 Subjective: 24yo G1 now P1 s/p ppd 1. Ambulating, voiding and without difficulty. Reports pain well controlled with medication but experiencing perineal soreness. Denies any concerns at this time. Physical Exam (OB) Vital Signs: Temp Pulse Resp BP Pulse Ox 97.6 F 84 15 113/67 98 01/24/20 07:40 01/24/20 07:40 01/24/20 07:40 01/24/20 07:40 01/24/20 07:40 Intake & Output 01/23/20 01/24/20 01/25/20 06:59 06:59 06:59 Intake Total 136 340 Balance 136 340 - General General Appearance: Appears well In distress: None - PIH/Pre-Eclampsia DTR's: 1 + Clonus: Negative Headache: Absent Epigastric Pain: No Visual Changes: No - Episiotomy/Laceration Site Condition: Well Approximated - Lochia Lochia Amount: Scant < 10 ml Lochia Color: Rubra/Red - Abdomen Description: Soft, Round Hernia Present: No Fundal Description: Firm, Midline Fundal Height: u/u - u/2 - Respiratory Respiratory Status: No respiratory distress - Extremities Upper extremity: Normal inspection Lower extremities: Normal inspection - Neurological Cognition: Normal Orientation: AAOx4 - Psychological Associated symptoms: Normal affect, Normal mood Objective-Diagnostic Laboratory: 01/24/20 06:47 01/24/20 06:47 WBC 11.8 H RBC 4.10 Hgb 12.2 Hct 36.0 MCV 88 MCH 29.7 MCHC 33.8 RDW 14.2 H Plt Count 197 Assessment and Plan(PN) - Assessment and Plan (1) Obstetric labial laceration, delivered, current hospitalization Is this a current diagnosis for this admission?: Yes Plan: continue to monitor for s/s of infection (2) Encounter for elective induction of labor Is this a current diagnosis for this admission?: Yes Plan: delivered (3) Post-term , 40-42 weeks of gestation Is this a current diagnosis for this admission?: Yes Plan: delivered (4) Vaginal delivery Is this a current diagnosis for this admission?: Yes Plan: routine pp - Time Spent with Patient Time with patient: Less than 15 minutes Medications reviewed and adjusted accordingly: Yes - Disposition Anticipated Discharge: Home Within: within 24 hours
[2020-01-25] MEDS: IBUPROFEN 800 MG TABLET PO SCH (05:50)
[2020-01-25 08:59] VITALS: BP 123/74
--- NOTE | 2020-01-25 10:12 | PDOC DISCHARGE SUMMARY ---
Impression - Admit/DC Date/PCP Admission Date/Primary Care Provider: 01/21/20 18:46 SOO BALLESTEROS MD Discharge Date: 01/25/20 - PP Day #2, doing well, , A+, Rubella Immune. no complaints - Discharge Diagnosis (1) Encounter for elective induction of labor Is this a current diagnosis for this admission?: Yes (2) Obstetric labial laceration, delivered, current hospitalization Is this a current diagnosis for this admission?: Yes (3) Post-term , 40-42 weeks of gestation Is this a current diagnosis for this admission?: Yes (4) Vaginal delivery Is this a current diagnosis for this admission?: Yes - Additional Information Resuscitation Status: Full Code Discharge Diet: Regular Discharge Activity: Activity As Tolerated Referrals: [facility] [Provider Group] (Please call and schedule a 4 week follow up at [facility]. ) Prescriptions: Ibuprofen [Motrin 800 mg Tablet] 800 mg PO Q8 #60 tablet Home Medications: Pnv 102/Iron/Folate 1/Dss/Dha [Vitafol Fe+ Docusate Combo Pck] 1 each PO DAILY 01/01/20 Ibuprofen [Motrin 800 mg Tablet] 800 mg PO Q8 #60 tablet 01/25/20 HPI Reason(s) for Admission: Induction of Labor Procedures: NST, Ultrasound Intrapartum Procedure(s): Spontaneous Vaginal Delivery Complication(s): Laceration-Labial Laceration-Degree: 1st - partial manual removal of placenta, Unasyn x 1dose given after delilvery of placenta Hospital Course Hospital Course: routine Results Laboratory Results: WBC 11.8 10^3/uL (4.0-10.5) H 01/24/20 06:47 RBC 4.10 10^6/uL (3.72-5.28) 01/24/20 06:47 Hgb 12.2 g/dL (12.0-15.5) 01/24/20 06:47 Hct 36.0 % (36.0-47.0) 01/24/20 06:47 MCV 88 fl (80-97) 01/24/20 06:47 MCH 29.7 pg (27.0-33.4) 01/24/20 06:47 MCHC 33.8 g/dL (32.0-36.0) 01/24/20 06:47 RDW 14.2 % (11.5-14.0) H 01/24/20 06:47 Plt Count 197 10^3/uL (150-450) 01/24/20 06:47 Lymph % (Auto) 20.6 % (13-45) 01/21/20 19:41 [place] % (Auto) 8.7 % (3-13) 01/21/20 19:41 Eos % (Auto) 0.5 % (0-6) 01/21/20 19:41 Baso % (Auto) 0.6 % (0-2) 01/21/20 19:41 Absolute Neuts (auto) 6.9 10^3/uL (1.7-8.2) 01/21/20 19:41 Absolute Lymphs (auto) 2.0 10^3/uL (0.5-4.7) 01/21/20 19:41 Absolute Monos (auto) 0.9 10^3/uL (0.1-1.4) 01/21/20 19:41 Absolute Eos (auto) 0.0 10^3/uL (0.0-0.6) 01/21/20 19:41 Absolute Basos (auto) 0.1 10^3/uL (0.0-0.2) 01/21/20 19:41 Seg Neutrophils % 69.6 % (42-78) 01/21/20 19:41 Urine Color STRAW 01/21/20 18:56 Urine Appearance CLEAR 01/21/20 18:56 Urine pH 6.0 (5.0-9.0) 01/21/20 18:56 Ur Specific [place] 1.008 01/21/20 18:56 Urine Protein NEGATIVE mg/dL (NEGATIVE) 01/21/20 18:56 Urine Glucose (UA) NEGATIVE mg/dL (NEGATIVE) 01/21/20 18:56 Urine Ketones NEGATIVE mg/dL (NEGATIVE) 01/21/20 18:56 Urine Blood NEGATIVE (NEGATIVE) 01/21/20 18:56 Urine Nitrite NEGATIVE (NEGATIVE) 01/21/20 18:56 Urine Bilirubin NEGATIVE (NEGATIVE) 01/21/20 18:56 Urine Urobilinogen NEGATIVE mg/dL (<2.0) 01/21/20 18:56 Ur Leukocyte Esterase NEGATIVE (NEGATIVE) 01/21/20 18:56 Urine WBC (Auto) 4 /HPF 01/21/20 18:56 Urine RBC (Auto) 1 /HPF 01/21/20 18:56 Urine Bacteria (Auto) 3+ /HPF 01/21/20 18:56 Squamous Epi Cells Auto 2 /HPF 01/21/20 18:56 Urine Mucus (Auto) RARE /LPF 01/21/20 18:56 Urine Ascorbic Acid 20 (NEGATIVE) H 01/21/20 18:56 Urine Opiates Screen NEGATIVE 01/21/20 18:56 Urine Methadone Screen NEGATIVE 01/21/20 18:56 Ur Barbiturates Screen NEGATIVE 01/21/20 18:56 Ur Phencyclidine Scrn NEGATIVE 01/21/20 18:56 Ur Amphetamines Screen NEGATIVE 01/21/20 18:56 U Benzodiazepines Scrn NEGATIVE 01/21/20 18:56 Urine Cocaine Screen NEGATIVE 01/21/20 18:56 U Marijuana (THC) Screen NEGATIVE 01/21/20 18:56 RPR NONREACTIVE (NONREACTIVE) 01/21/20 19:41 Blood Type A POSITIVE 01/21/20 19:41 Antibody Screen NEGATIVE 01/21/20 19:41 Plan Plan of Treatment: d/c to home, f/up with [facility] in 4 wks
[2020-01-25] MEDS: FERROUS SULFATE 325 MG TABLET PO SCH (10:36)
[2020-01-25] MEDS: SENNOSIDES/DOCUSATE 8.6-50 MG 1 EACH TABLET PO SCH (10:36)
[2020-01-25] MEDS: DOCUSATE SODIUM 100 MG CAPSULE PO SCH (10:36)
[2020-01-25] MEDS: PRENATAL VITAMIN W DHA CAPSULE PO SCH (10:36)
== END 2020-01-25 12:28 | disposition home or self-care (01) | DRG 807 ==
LOC: LR 18:46 → 2S 01-23 15:09
PROVIDERS: ADMIT Student in an Organized Health Care Education/Training Program; ATTEND Student in an Organized Health Care Education/Training Program
PROC: 10E0XZZ Delivery of Products of Conception, External Approach (ICD-10-PCS; principal; 2020-01-23)
PROC: 0UQMXZZ Repair Vulva, External Approach (ICD-10-PCS; 2020-01-23)
PROC: 10907ZC Drainage of Amniotic Fluid, Therapeutic from Products of Conception, Via Natural or Artificial Opening (ICD-10-PCS; 2020-01-23)
PROC: 3E033VJ Introduction of Other Hormone into Peripheral Vein, Percutaneous Approach (ICD-10-PCS; 2020-01-23)
DX: O48.0 Post-term pregnancy (principal); Z37.0 Single live birth; O70.0 First degree perineal laceration during delivery; O32.6XX0 Maternal care for compound presentation, not applicable or unspecified; O69.89X0 Labor and delivery complicated by other cord complications, not applicable or unspecified; Z3A.41 41 weeks gestation of pregnancy; Z28.21 Immunization not carried out because of patient refusal
CPT/HCPCS: 36415; 80307; 81001; 85025; 85027; 86592; 86850; 86900; 86901; 88307; 94760; J0295; J2370; J2590; J3010; J3490